=== PATIENT | male | born 1990 | race Caucasian/White ===

== ENCOUNTER 2019-01-14 11:01 | Emergency (ER) | payer OTHER ==
[~2019-01-14] VITALS: Ht 170.2 cm; Wt 94.3 kg
[2019-01-14] MEDS: KETOROLAC TROMETHAMINE 30 MG/ML VIAL IV STA (11:26)
[2019-01-14] MEDS: METOCLOPRAMIDE HCL 10 MG/2ML VIAL IV ONE (11:26)
[2019-01-14] MEDS: SODIUM CHLORIDE 0.9% 1000ML 1,000 ML IV STA ×2 (11:26→11:49)
[2019-01-14 11:29] LABS: BASOPHILS % 0.5 % (0.0-1.0); EOSINOPHILS # (AUTO) 0.1 (0.0-0.4); HEMATOCRIT 36.4 % (38.2-49.6); LYMPHOCYTES # (AUTO) 1.7 (1.0-3.2); LYMPHOCYTES % 27.1 % (18.0-39.1); MEAN CORPUSCULAR HEMOGLOBIN 31.2 pg (28-32); MEAN CORPUSCULAR HGB CONC 35.7 g/dL (31-35); MEAN CORPUSCULAR VOLUME 87.3 fL (81-99); MONOCYTES # (AUTO) 0.5 (0.2-0.8); MONOCYTES % 7.5 % (4.4-11.3); NEUTROPHILS # (AUTO) 3.9 (2.1-6.9); NEUTROPHILS % 63.6 % (38.7-80.0); PLATELET COUNT 301 x10e3/uL (140-360); RED BLOOD COUNT 4.17 x10e6/uL (4.3-5.7); RED CELL DISTRIBUTION WIDTH 12.3 % (11.7-14.4)
[2019-01-14] MEDS: DIPHENHYDRAMINE HCL INJ 50 MG/ML VIAL IV ONE (11:50)
[2019-01-14 11:54] LABS: ALANINE AMINOTRANSFERASE 44 IU/L (0-55); ALBUMIN 4.4 g/dL (3.5-5.0); ALBUMIN/GLOBULIN RATIO 1.3 (0.8-2.0); ALKALINE PHOSPHATASE 105 IU/L (40-150); ANION GAP 17.8 mmol/L (8-16); BLOOD UREA NITROGEN 11 mg/dL (7-26); BUN/CREATININE RATIO 12 (6-25); CALCIUM 10.1 mg/dL (8.4-10.2); CARBON DIOXIDE 22 mmol/L (22-29); CHLORIDE 104 mmol/L (98-107); CREATININE, SERUM 0.91 mg/dL (0.72-1.25); EST GLOMERULAR FILTRATION RATE > 60 ML/MIN (60-); GLUCOSE 94 mg/dL (74-118); POTASSIUM 3.8 mmol/L (3.5-5.1); SODIUM 140 mmol/L (136-145)
[2019-01-14 13:01] VITALS: BP 113/80
== END 2019-01-14 13:09 | disposition home or self-care (01) ==
LOC: ER 11:01
DX: G97.1 Other reaction to spinal and lumbar puncture (principal)
CPT/HCPCS: 36415; 80053; 85025; 99283; J1200; J1885; J2765; J7030